=== PATIENT | male | born 1960 | race Caucasian/White ===

== ENCOUNTER → 2016-10-24 | Day surgery (SDC) | payer BC ==
[2016-10-24] VITALS (8 sets, daily range): BP systolic 101–128; BP diastolic 65–84
[~2016-10-24] VITALS: Ht 167.6 cm; Wt 72.6 kg
[~2016-10-24] MED LIST: LR 1000ml ONE; Lidocaine 1% MPF 10mg/ml 5ml ONE; Propofol 10mg/ml 20ml IV ONE; [UNRECOGNIZED DRUG - OTHER] PO; cialis PO; vit d PO
--- NOTE | 2016-10-24 09:22 | Pre-Procedure Note/Attestation ---
Pre-Procedure Note/Attestation Complete Prior to Procedure Planned Procedure: not applicable Procedure Narrative: colon Indications for Procedure Pre-Operative Diagnosis: screening Attestation I attest that I discussed the nature of the procedure; its benefits; risks and complications; and alternatives (and the risks and benefits of such alternatives ), prior to the procedure, with the patient (or the patient's legal quality audit representative). I attest that, if there was a reasonable possibility of needing a blood transfusion, the patient (or the patient's legal quality audit representative) was given the [facility] standardized written summary, pursuant to the Dmitry Armen Blood Safety Act ([place] Health and Safety Code # 1645, as amended). I attest that I re-evaluated the patient just prior to the surgery and that there has been no change in the patient's H&P, except as documented below: JM LOPES Oct 24, 2016 09:22
--- NOTE | 2016-10-24 09:23 | Short Stay Surgery H&P ---
History of Present Illness History of Present Illness Chief Complaint see tyed H&P HPI Jonathan Alcala is a 56 year old male who was admitted on for Colon Screening Patient History Allergies: Coded Allergies: No Known Allergies (Unverified , 10/24/16) PAST MEDICAL HISTORY: Past Surgeries: Social History: Medication History Scheduled [Znc], 1 TAB PO DAILY, (Reported) [cialis], 1 TAB PO QOD, (Reported) [vit d], 2,000 UNITS PO DAILY, (Reported) Physical Exam Vital Signs Last Vital Signs Date Time Temp Pulse Resp B/P Pulse Ox O2 Delivery O2 Flow Rate FiO2 10/24/16 08:30 98.4 76 18 128/84 99 Room Air Plan Attestation Are the patient's medical conditions optimized for surgery? JM LOPES Oct 24, 2016 09:23
--- NOTE | 2016-10-24 09:53 | Anethesia Preoperative Eval ---
Anesthesia Pre-op PMH/ROS General Date of Evaluation: Oct 24, 2016 Time of Evaluation: 09:15 Anesthesiologist: james ASA Score: ASA 1 Mallampati Score Class I : Soft palate, uvula, fauces, pillars visible Class II: Soft palate, uvula, fauces visible Class III: Soft palate, base of uvula visible Class IV: Only hard plate visible Mallampati Classification: Class II Surgeon: ilene Diagnosis: colon screening Surgical Procedure: colonoscopy Anesthesia History: none Family History: no anesthesia problems Allergies: Coded Allergies: No Known Allergies (Unverified , 10/24/16) Medications: see eMAR Past Medical History Cardiovascular: Denies: CAD, HTN, [place], arrhythmia, other, valve dz Pulmonary: Denies: COPD, WADE, asthma, other Gastrointestinal/Genitourinary: Denies: CRI, ESRD, GERD, other Neurologic/Psychiatric: Denies: CVA, TIA, dementia, depression/anxiety, other Endocrine: Denies: DM, hypothyroidism, other, steroids HEENT: Denies: QUECHAN (L), QUECHAN (R), cataract (L), cataract (R), glaucoma, other Musculoskeletal/Integumentary: Denies: DDD, DJD, OA, RA, edema, other PSxH Narrative: none Anesthesia Pre-op Phys. Exam Physician Exam Last Vital Signs Date Time Temp Pulse Resp B/P Pulse Ox O2 Delivery O2 Flow Rate FiO2 10/24/16 08:30 98.4 76 18 128/84 99 Room Air Constitutional: NAD Neurologic: CN 2-12 intact Cardiovascular: RRR Respiratory: CTA Gastrointestinal: S/NT/ND Airway Exam Mallampati Classification 2 Mallampati Score: Class II MO: full ROM: full Dentures: no lower, no upper Anesthesia Pre-op A/P Studies Pre-op Studies: EKG - sr Risk Assessment & Plan Plan: mac Status Change Before Surgery: No Pre-Antibiotics Drug: none VIDAL HERNANDEZ CRNA Oct 24, 2016 09:53
--- NOTE | 2016-10-24 09:55 | Immediate Post-Op Evaluation ---
Immediate Post-Op Evalulation Immediate Post-Op Evalulation Procedure: colonoscopy Date of Evaluation: Oct 24, 2016 Time of Evaluation: 09:54 IV Fluids: 500 Blood Pressure Systolic: 101 Blood Pressure Diastolic: 54 Pulse Rate: 70 Respiratory Rate: 14 O2 Sat by Pulse Oximetry: 97 Temperature (Fahrenheit): 97.5 Nausea: No Vomiting: No Complications none Patient Status: awake, patent Hydration Status: adequate Drug: none VIDAL HERNANDEZ CRNA Oct 24, 2016 09:55
--- NOTE | 2016-10-24 10:26 | 48 Hour Post Anesthesia Eval ---
Post Anesthesia Evaluation Procedure: colonoscopy Date of Evaluation: Oct 24, 2016 Time of Evaluation: 10:21 Blood Pressure Systolic: 121 0: 65 Pulse Rate: 75 Respiratory Rate: 14 O2 Sat by Pulse Oximetry: 99 Airway: patent Nausea: No Vomiting: No Hydration Status: adequate Mental Status/LOC: patient returned to baseline Post-Anesthesia Complications: none Follow-up care needed: N/A VIDAL HERNANDEZ CRNA Oct 24, 2016 10:26
--- NOTE | 2016-10-24 10:56 | Endoscopy Procedure Note ---
Endoscopy Procedure Note Indication for Procedure: screen Procedures Performed: colonoscopy Operative Findings/Diagnosis: nl Specimen: none Pt Tolerated Procedure Well: Yes Estimated Blood Loss: none Anesthesiologist: see report Anesthesia: MAC Medication Given: see anesthesia record Implant(s) used?: No 50 yrs or older w/o bx or poly: Yes 10yrs. F/U not recommended: Yes If not recommended, why?: 10 yrs. F/U needed: Yes 18 years or older w/prev. colo: No <3yrs. since last colonoscopy: No Med reason:<3 yrs.: System Reason:<3 yrs.: Last colonoscopy >= to 3yrs: Yes JM LOPES Oct 24, 2016 10:55
--- NOTE | 2016-10-24 10:56 | Pre-Procedure Note/Attestation ---
Pre-Procedure Note/Attestation Complete Prior to Procedure Planned Procedure: not applicable Procedure Narrative: colon Indications for Procedure Pre-Operative Diagnosis: screening Attestation I attest that I discussed the nature of the procedure; its benefits; risks and complications; and alternatives (and the risks and benefits of such alternatives ), prior to the procedure, with the patient (or the patient's legal customer contact representative). I attest that, if there was a reasonable possibility of needing a blood transfusion, the patient (or the patient's legal customer contact representative) was given the [facility] standardized written summary, pursuant to the Dmitry Armen Blood Safety Act ([place] Health and Safety Code # 1645, as amended). I attest that I re-evaluated the patient just prior to the surgery and that there has been no change in the patient's H&P, except as documented below: JM LOPES Oct 24, 2016 10:56
--- NOTE | 2016-10-24 23:28 | Operative Note - Dictated ---
DATE OF OPERATION: 10/24/2016 GASTROLOGY PROCEDURE REPORT PROCEDURE: Colonoscopy. PRE-ENDOSCOPIC DIAGNOSIS: Screening. POST-ENDOSCOPIC DIAGNOSIS: Normal colonoscopy. DESCRIPTION OF PROCEDURE: The procedure, its risks, indications, alternatives, and possible complications were explained to the patient. Informed consent was obtained. The patient was then sedated. A rectal exam was done, which was normal. The colonoscope was then introduced in the rectum and advanced to the cecum. The colonoscope was then gradually withdrawn and mucosa examined carefully. The cecum was identified by the appearance of the ileocecal valve. There are no abnormalities identified. The patient was sent to recovery in good condition. COMPLICATIONS: None. RECOMMENDATIONS: 1. Resume oral diet. 2. Next colonoscopy in five to ten years. Kenneth Asencio M.D. DR: TIKI JOB#: [id number] CC:
== END | disposition home or self-care (01) ==
LOC: GAS 08:00
DX: Z12.11 Encounter for screening for malignant neoplasm of colon (principal); I10 Essential (primary) hypertension; E55.9 Vitamin D deficiency, unspecified; N52.9 Male erectile dysfunction, unspecified
CPT/HCPCS: 45378; J2704; J7120; 94003; 94150